=== PATIENT | male | born 1955 | race Caucasian/White ===

== ENCOUNTER 2023-02-11 13:28 | Outpatient (CLI) | payer MEDICARE, BC ==
[2023-02-11 14:20] LABS: Bilirubin Neg (Negative); Blood, Urine Negative (Negative); Clarity Clear (Clear); Glucose, Urine (Dipstick) Normal (Negative); Ketone, Urine Negative (Negative); Leukocyte Negative (Negative); Nitrite Negative (Negative); Protein, Urine (Dipstick) Negative (Neg-Trace); Urobilinogen Normal mg/dL (Less than 2)
[2023-02-11 14:21] LABS: Hemoglobin 13.9 g/dL (13.5-17.5); Mean Corpuscular HGB CONC 33.4 g/dL (32.0-36.0); Mean Corpuscular Volume 95.6 fl (81.2-95.1); Mean Platelet Volume 10.7 fl (7.4-10.4); Platelet Count 219 10x3/uL (150-450); RBC Distribution Width 12.1 % (11.5-14.5); Red Blood Cell (RBC) Count 4.35 10x6/uL (4.32-5.72); White Blood Cell (WBC) Count 7.7 10x3/uL (3.5-10.5)
[2023-02-11 14:34] LABS: Bacteria/HPF None Seen HPF (None Seen); RBC/HPF None Seen HPF (0-3); Squamous Epithelial None Seen HPF (0-3); WBC/HPF None Seen HPF (0-3)
[2023-02-11 14:38] LABS: PTT 27.2 sec (22.0-33.0); Prothrombin Time 10.4 sec (9.5-12.1)
[2023-02-11 14:39] LABS: Anion Gap 11 mmol/L (10-20); BUN (Urea Nitrogen) 13 mg/dL (8.4-25.7); Calc. Creatinine Clearance 0 mL/min (70-130); Calcium 8.9 mg/dL (7.8-10.44); Carbon Dioxide 28 mmol/L (23-31); Chloride 108 mmol/L (98-107); Estimated GFR 85; Glucose 71 mg/dL (80-115); Potassium 3.7 mmol/L (3.5-5.1); Sodium 143 mmol/L (136-145)
== END 2023-02-11 13:29 | disposition home or self-care (01) ==
LOC: LABBT 13:28
PROVIDERS: ATTEND Urology
DX: Z01.818 Encounter for other preprocedural examination (principal); N48.6 Induration penis plastica
CPT/HCPCS: 80048; 81001; 85027; 85610; 85730; 87086; 93005; 93010

== ENCOUNTER 2023-02-24 06:12 | Day surgery (SDC) | payer MEDICARE, BC ==
[2023-02-22 14:17] VITALS: BMI 25.0
[2023-02-24] MEDS ORDERED: Midazolam HCl 2 mg/2 ml Vial ONE (08:17)
[2023-02-24] MEDS ORDERED: Lidocaine 2% 6 ML SYR ONE (08:17)
[2023-02-24] MEDS ORDERED: fentaNYL 50 mcg/mL 1 mL Vial ONE (08:17)
[2023-02-24] MEDS ORDERED: Neomycin-Polymyxin 1 ML AMP ONE (08:22)
[2023-02-24] MEDS ORDERED: Bacitracin Zinc Ointment 30 gm TUBE ONE (08:22)
[2023-02-24] MEDS ORDERED: Bupivacaine 0.25% HCL 30 ML VIAL ONE (08:22)
[2023-02-24] MEDS ORDERED: Sodium Chloride 0.9% 100 ML ONE (08:28)
[2023-02-24] MEDS ORDERED: CEFAZOLIN 1 GM VIAL ONE (08:28)
[2023-02-24] MEDS ORDERED: Dexamethasone 20 MG/5 ML VIAL ONE (08:34)
[2023-02-24] MEDS ORDERED: PROPOFOL 200 MG/20 ML VIAL ONE (08:34)
[2023-02-24] MEDS ORDERED: Lidocaine 1% PF 5 ML VIAL ONE (08:34)
[2023-02-24] MEDS ORDERED: ePHEDrine Sulfate 50 MG/10 ML VIAL ONE (08:34)
[2023-02-24] MEDS ORDERED: Ondansetron PF 4 MG/2 ML Vial ONE (08:34)
== END 2023-02-24 11:25 | disposition home or self-care (01) ==
LOC: SDC 06:12
PROVIDERS: ATTEND Urology
PROC: 0VNS0ZZ Release Penis, Open Approach (ICD-10-PCS; principal; 2023-02-24)
DX: N48.6 Induration penis plastica (principal); K21.9 Gastro-esophageal reflux disease without esophagitis; E78.5 Hyperlipidemia, unspecified; Z79.899 Other long term (current) drug therapy; Z88.0 Allergy status to penicillin
CPT/HCPCS: 54360; J3010; J0690; J1100; J2250; J2405; J2704; J3490; S0020

== ENCOUNTER 2024-07-22 22:05 | Emergency (ER) | payer MEDICARE, BC ==
[2024-07-22 23:00] LABS: #Basophils 0.05 10x3/uL (0.0-0.2); %Basophils 0.5 % (0.0-1.0); %Eosinophils 5.6 % (0.0-10.0); %Lymphocytes 22.9 % (21.0-51.0); %Monocytes 8.6 % (0.0-10.0); %Neutrophils 62.2 % (42.0-75.0); Hemoglobin 14.2 g/dL (14.0-18.0); Mean Corpuscular HGB CONC 34.6 g/dL (32.0-36.0); Mean Corpuscular Hemoglobin 32.9 pg (27.0-31.0); Mean Corpuscular Volume 95.1 fL (78.0-98.0); Mean Platelet Volume 10.2 fL (7.4-10.4); Platelet Count 214 10x3/uL (130-400); RBC Distribution Width 11.9 % (11.5-14.5); Red Blood Cell (RBC) Count 4.31 mill/uL (4.70-6.10)
[2024-07-22 23:13] LABS: ALT (SGPT) 21 U/L (8-55); AST (SGOT) 22 U/L (5-34); Albumin 3.9 g/dL (3.4-4.8); Alkaline Phosphatase 69 U/L (40-110); Anion Gap 12 mmol/L (10-20); BUN (Urea Nitrogen) 16 mg/dL (8.4-25.7); Bilirubin, Total 0.5 mg/dL (0.2-1.2); Calc. Creatinine Clearance 0 mL/min (70-130); Calcium 9.4 mg/dL (7.8-10.44); Carbon Dioxide 26 mmol/L (23-31); Chloride 107 mmol/L (98-107); Estimated GFR 95; Globulin 3.1 g/dL (2.4-3.5); Glucose 92 mg/dL (80-115); Potassium 4.3 mmol/L (3.5-5.1); Sodium 141 mmol/L (136-145)
[2024-07-22] MEDS ORDERED: Acetaminophen 500 MG TAB ONE (23:23)
== END 2024-07-23 03:10 | disposition home or self-care (01) ==
LOC: ERS 22:05
DX: S06.0X0A Concussion without loss of consciousness, initial encounter (principal); H11.31 Conjunctival hemorrhage, right eye; V47.5XXA Car driver injured in collision with fixed or stationary object in traffic accident, initial encounter
CPT/HCPCS: 36415; 70450; 70486; 71046; 72125; 80053; 85025; 93005